=== PATIENT | male | born 1990 | race Caucasian/White ===

== ENCOUNTER 2017-03-15 08:56 | Emergency (ER) | payer OTHER ==
--- NOTE | ~2017-03-15 | CR2 ---
[facility] A Service [facility] RADIOLOGY TEXT RESULTS PATIENT: IBIS ACUNA LOCATION: SED : 86 UNIT #: [id number] AGE: [address]: Laurel Rajput MD SEX: M ORDER DR: [id number] [address] [address] [id number] E MR#: [id number] Acc #: [id number] NAME: IBIS ACUNA : 1990 SEX: M STUDY DATE/TIME: 03/15/2017 10:20 UNIT: SED ROOM: STUDY DESCRIPTION: CR Abdomen Acute Series Attending Physician: Laurel Rajput M.D. Ordering Physician: Laurel Rajput M.D. Primary Care Physician: Primary Care Physician No MEDICAL IMAGING REPORT This report is preliminary unless electronic signature is present. EXAM Acute abdomen series HISTORY Abdominal pain toward the right with vomiting for the past 3 days. TECHNIQUE A single view of the chest was obtained as well as flat and upright views the abdomen. FINDINGS Single frontal view of the chest taken at the time of the abdominal examination is within normal limits. AP, supine, and upright examination of the abdomen shows a normal gas and fecal pattern distribution throughout large and small bowel without distended loops in either area. There is no indication of extraluminal air, unusual visceromegaly, or soft tissue density mass. The renal definitions are fairly well demarcated and normal in shape and size. No abnormal intra-abdominal calcifications are present. IMPRESSION Normal acute abdomen series. Dictated by... Marlo Onofre M.D. THIS IS AN ELECTRONICALLY VERIFIED REPORT Marlo Onofre M.D. at 03/15/2017 4:41 PM OTILIA/robin TD: 03/15/2017 11:24 [facility] A Service [facility] RADIOLOGY TEXT RESULTS PATIENT: IBIS ACUNA LOCATION: SED : [birth year] UNIT #: [id number] AGE: [address]: Laurel Rajput MD SEX: M ORDER DR: JOB #: [id number] MEDICAL IMAGING REPORT Page 1 of 1
[~2017-03-15 08:56] MED LIST: BACITRACIN1 GM OINT EXT; DARVOCET-N 1001 TA1 PO; DICLOFENAC PO; FLEXERIL PO; LORTAB 2.5/5001 TAB PO; PERCOCET5/325 PO
[2017-03-15 09:33] LABS: BASOPHIL# 0.1 X10e3 (0-0.3); BASOPHIL% 0.8 % (0-2.5); EOSINOPHIL# 0.2 X10e3 (0-0.7); EOSINOPHIL% 2.8 % (0.0-7.0); HEMATOCRIT 46.3 % (38.0-50.0); HEMOGLOBIN 15.7 gm/dL (13.0-16.0); LYMPHOCYTE# 3.1 X10e3 (1.0-3.5); LYMPHOCYTE% 35.1 % (17.0-45.0); MEAN CELL VOLUME 89.8 FL (83-96); MEAN CORPUSCULAR HEMOGLOBIN 30.5 PG (28-34); MEAN CORPUSCULAR HGB CONC 33.9 g/dL (30-36); MEAN PLATELET VOLUME 10.1 FL (6.5-11.5); MONOCYTE# 0.8 X10e3 (0-1.0); MONOCYTE% 9.6 % (3.0-12.0); NEUTROPHIL# 4.5 X10e3 (1.5-7.1); NEUTROPHIL% 51.7 % (40-75); PLATELET COUNT 201 X10e3 (140-420); RED BLOOD COUNT 5.16 X10e (3.90-5.60); WHITE BLOOD COUNT 8.8 X10e3 (4.0-10.5)
[2017-03-15 09:50] LABS: DIFF IND NO
[2017-03-15 09:54] LABS: URINE SOURCE CLEAN CATCH
[2017-03-15 09:56] LABS: URINE APPEARANCE CLEAR; URINE BILIRUBIN NEG (NEG); URINE BLOOD NEG (NEG); URINE COLOR YELLOW; URINE GLUCOSE NEG (NORM); URINE KETONE NEG (NEG); URINE LEUKOCYTE ESTERASE NEG (NEG); URINE NITRATE NEG (NEG); URINE PH 5.5 (5-8); URINE PROTEIN NEG (NEG); URINE SPECIFIC GRAVITY >=1.030 (1.003-1.035); URINE UROBILINOGEN 0.2 MG/DL (NORM)
[2017-03-15 10:01] LABS: MICRO INDICATED? NO
[2017-03-15 10:01] LABS: CALCIUM SERUM 8.6 mg/dL (8.4-10.2); CREATININE SERUM 0.7 mg/dL (0.6-1.4); GLOM FILT RATE Estimated 128.5 mL/min (>60); POTASSIUM 4.1 mmol/L (3.5-5.1)
== END 2017-03-15 11:33 | disposition home or self-care (01) ==
LOC: SED 08:56
PROVIDERS: Emergency Medicine
DX: R10.9 Unspecified abdominal pain (principal); R11.2 Nausea with vomiting, unspecified; R19.7 Diarrhea, unspecified; Z90.89 Acquired absence of other organs; Z88.1 Allergy status to other antibiotic agents; Z88.0 Allergy status to penicillin; F17.210 Nicotine dependence, cigarettes, uncomplicated
CPT/HCPCS: 36415; 74022; 80048; 81003; 85025; 96361; 96374; 99284; J1885